=== PATIENT | female | born 1940 | race Caucasian/White ===

== ENCOUNTER → 2016-04-01 | Day surgery (SDC) | payer OTHER ==
[~2016-04-01] VITALS: Ht 167.6 cm; Wt 70.8 kg
[~2016-04-01] MED LIST: *morphine SULFATE 8 MG/ML PERIprocedure ONLY ONE; ACETAMINOPHEN 1000 MG/100 ML VIAL IV ONE; ACETAMINOPHEN/HYDROcodone 325 MG/5 MG TAB PO PRN; APREPITANT 40 MG CAP ONE; ASPI1TAB69 PO; BUPIVACAINE/EPINEPHRINE 0.25% PF 30 ML VIAL ONE; CALC1TAB87 PO; CHLORHEXIDINE GLUCONATE 4% SOLN 120 ML BTL TOP SCH; CHOL400D2 PO; COQ-100C2 PO; COQ-150C; DEXAMETHASONE SOD PHOS 4 MG/ML VIAL ONE; DO NOT ADM ANY ANTICOAGULANT DRUGS XX PRN; E-20CAP PO; FAMOTIDINE 20 MG/2 ML VIAL ONE; FISH500C PO; FLAX100013 PO; GENTAMICIN SULFATE 80 MG/2 ML VIAL ONE; GLUC1CAP16 PO; GLUC750C PO; INSULIN HUMAN REGULAR 1,000 UNITS/10 ML VIAL SQ PRN; LACTATED RINGER'S 1000 ML INJ 1,000 ML IV ONE; LACTATED RINGER'S 1000 ML IV SCH; LACTCAP8 PO; LOSA100T PO; MAGN1TAB14 PO; METOPROLOL TARTRATE 25 MG TAB PO PRN; MIDAZOLAM HCL 2 MG/2 ML VIAL ONE; NEOSTIGMINE 3 MG/3 ML SYR IV ONE; OMEG1CAP59 PO; PANT20TA2 PO; PHENYLEPH/NS 1000 MCG/10 ML SYR IV ONE; PRIMROSE OIL PO; PROMETHAZINE INJ 25 MG/ML VIAL ONE; PROPOFOL 200 MG/20 ML AMP IV ONE; SODIUM CHLORID 0.9% 500 ML IV SCH; VITA400C5 PO; VITA400T2 PO; ceFAZolin 1,000 MG/NS 100 ML IV SCH; ceFAZolin INJ 1,000 MG VIAL ONE; ePHEDrine/NS 50 MG/5 ML SYR IV ONE; fentaNYL CITRATE 250 MCG/5 ML AMP ONE
[2016-04-01 13:09] VITALS: BP 161/84; PULSE 79; RESP 18; TEMP 98.5; O2SAT 99
[2016-04-01 18:30] VITALS: BP 169/79; PULSE 60; RESP 16; TEMP 97.4; O2SAT 99
--- NOTE | 2016-04-01 21:20 | RADRPT ---
EXAM DATE/TIME: 04/01/2016 15:30 [facility] COMPARISON: No previous studies available for comparison. INDICATIONS : L4-5 Laminectomy. MEDICAL HISTORY : Unobtainable. SURGICAL HISTORY : Unobtainable. ENCOUNTER: Initial ACUITY: 1 day PAIN SCORE: Non-responsive. LOCATION: Lumbar Spine. FINDINGS: Hardware overlies the upper spinous processes of L5 directed toward the L4-5 intervertebral disc spac e where disc space narrowing and minimal spondylolisthesis is present. CONCLUSION: Localization L4-5 Gorge Frye MD on April 01, 2016 at 21:17 Board Certified Radiologist. This report was verified electronically.
--- NOTE | 2016-04-07 07:40 | MP ---
cc: KENYATTA WOMACK ALBERT DATE OF SURGERY: April 01, 2016 PREOPERATIVE DIAGNOSIS 1. L4-5 severe spinal stenosis. 2. L4-5 grade 1 spondylolisthesis. 3. Lumbar spine degenerative disc disease, osteoarthritis. 4. Left greater than right lumbar radiculitis with bilateral lower extremity weakness. POSTOPERATIVE DIAGNOSIS 1. L4-5 severe spinal stenosis. 2. L4-5 grade 1 spondylolisthesis. 3. Lumbar spine degenerative disc disease, osteoarthritis. 4. Left greater than right lumbar radiculitis with bilateral lower extremity weakness. PROCEDURE L4-5 bilateral hemilaminectomy, decompression nerve root foraminotomy with partial facetectomy. SURGEON Maykel Yeboah MD COLLEGE ADMISSIONS COUNSELOR JAY Barber SPECIMEN None. ESTIMATED BLOOD LOSS 20 ccs. COMPLICATIONS None. ANESTHESIA General. DRAIN None. CONDITION Stable. PLAN OF ACTIVITY Per orders. PROCEDURE My assistant women's basketball coach JAY Barber was present for the entire surgical case. She was medically necessary for the entire case because of the complexity of the case and to facilitate the performance of the procedure. The ELECTRICAL APPLIANCE REPAIRER at the back table was not a skill set for this case to manipulate the instruments, e.g., the multiple different types of soft tissue retractors and nerve root retractors. The patient was brought to the operating room and had satisfactory general endotracheal anesthesia by the Department of Anesthesia. The patient was carefully transferred onto the [facility] spinal frame. All pressure points were well-padded. Lumbosacral spine was prepped and draped in usual sterile manner. Localizing x-ray was used to identify the L4-5 interspace. 25 ccs of 0.25% Marcaine with epinephrine was used to infiltrate the operative site. Small midline incision made over L4-5. Dissection continued through skin and subcutaneous tissue. Paraspinal muscle was then gently removed from posterior elements at L4-5. Localizing x-ray was used multiple times during surgery to confirm the L4-5 interspace. A bilateral decompressive hemilaminectomy was performed at L4-5. The patient was found to have severe spinal stenosis and foraminal stenosis bilaterally. A bilateral decompressive hemilaminectomy was performed and bilateral foraminotomy and partial facetectomy was also performed. There was no evidence of any CSF leak. The patient had very satisfactory decompression of the neural elements. The wound was irrigated with copious amounts of sterile saline antibiotic solution, the wound itself was dry. Wound was closed in a routine manner. The fascia was closed with #2 Tycron suture. Subcutaneous tissue was closed in layers with multiple 2-0 Vicryl. Skin was approximated with running subcuticular 3-0 Nylon. Dermabond was placed over the skin. Sterile dressings were applied. The patient tolerated the procedure well and went to the recovery room in stable and satisfactory condition. MD RENALDO Valenzuela/IGNACIO /4:41 PM /7:16 AM
== END | disposition home or self-care (01) ==
LOC: HSDC 12:11
PROVIDERS: ATTEND Orthopaedic Surgery Orthopaedic Surgery of the Spine
DX: M51.36 Other intervertebral disc degeneration, lumbar region (principal); M48.06 Spinal stenosis, lumbar region; M43.16 Spondylolisthesis, lumbar region; M81.0 Age-related osteoporosis without current pathological fracture; M51.16 Intervertebral disc disorders with radiculopathy, lumbar region; R53.1 Weakness
CPT/HCPCS: 00630; 63030; 72020; 76000; 86850; 86900; 86901; J0131; J0690; J1100; J2250; J2270; J2370; J2550; J2710; J3010; J7120; J8501; J1580

== ENCOUNTER 2017-01-17 14:30 | Observation (INO) | payer OTHER ==
[~2017-01-17] VITALS: Ht 167.6 cm; Wt 69.2 kg
[~2017-01-17 14:30] MED LIST changes: -*morphine SULFATE 8 MG/ML PERIprocedure ONLY ONE; -ACETAMINOPHEN 1000 MG/100 ML VIAL IV ONE; -ACETAMINOPHEN/HYDROcodone 325 MG/5 MG TAB PO PRN; -APREPITANT 40 MG CAP ONE; -BUPIVACAINE/EPINEPHRINE 0.25% PF 30 ML VIAL ONE; -CHLORHEXIDINE GLUCONATE 4% SOLN 120 ML BTL TOP SCH; -CHOL400D2 PO; -COQ-150C; -DEXAMETHASONE SOD PHOS 4 MG/ML VIAL ONE; -DO NOT ADM ANY ANTICOAGULANT DRUGS XX PRN; -E-20CAP PO; -FAMOTIDINE 20 MG/2 ML VIAL ONE; -FISH500C PO; -GENTAMICIN SULFATE 80 MG/2 ML VIAL ONE; -GLUC750C PO; -INSULIN HUMAN REGULAR 1,000 UNITS/10 ML VIAL SQ PRN; -LACTATED RINGER'S 1000 ML INJ 1,000 ML IV ONE; -LACTATED RINGER'S 1000 ML IV SCH; -MAGN1TAB14 PO; +MAGN400T3 PO; -METOPROLOL TARTRATE 25 MG TAB PO PRN; -MIDAZOLAM HCL 2 MG/2 ML VIAL ONE; -NEOSTIGMINE 3 MG/3 ML SYR IV ONE; -PHENYLEPH/NS 1000 MCG/10 ML SYR IV ONE; -PROMETHAZINE INJ 25 MG/ML VIAL ONE; -PROPOFOL 200 MG/20 ML AMP IV ONE; -SODIUM CHLORID 0.9% 500 ML IV SCH; -ceFAZolin 1,000 MG/NS 100 ML IV SCH; -ceFAZolin INJ 1,000 MG VIAL ONE; -ePHEDrine/NS 50 MG/5 ML SYR IV ONE; -fentaNYL CITRATE 250 MCG/5 ML AMP ONE
[2017-01-17 14:34] VITALS: BP 183/81; PULSE 73; RESP 15; TEMP 97.8; O2SAT 98
--- NOTE | 2017-01-17 14:49 | PD ---
HPI Chief Complaint: Chest Pain Time Seen by Provider: 14:46 Travel History International Travel<30 days: No Contact w/Intl Traveler<30days: No Traveled to known affect area: No History of Present Illness HPI This 76-year-old female that she was having indigestion from Tuesday until Tuesday morning area the indigestion actually has improved considerably. She still feeling generalized weakness. After the indigestion resolved she had an episode of chest pain. She had pain across her mid chest which radiated up to her jaw. She says it lasted about 10 minutes. She has been diagnosed with a gallbladder problem about 5 years ago. She says it only functions the 20% though she has no stones. She sees past week. She had upper endoscopy 2 years ago which was okay and she had a colonoscopy a few months ago which was also normal. She does not have shortness of breath with the chest pain. She is not diaphoretic. She does not smoke. She has a history of hypertension and is on losartan 100 mg daily. She has no diabetes. There is no family history of heart disease. He said to losartan she takes Protonix daily and a baby aspirin. She has had her aspirin today PFSH Past Medical History Cancer: Yes (BASAL CELL SKIN CA X5) Cardiovascular Problems: No High Cholesterol: Yes Diabetes: No Diminished Hearing: No Deep Vein Thrombosis: Yes (bilat) Endocrine: No Genitourinary: No Hepatitis: No Hiatal Hernia: No Hypertension: Yes Immune Disorder: No Musculoskeletal: No (LUMBAR SCHOLIOSIS) Neurologic: Yes (SPINAL STENOSIS WITH HERNIATION) Psychiatric: No Reproductive: Yes (ENDOMETRIOSIS) Respiratory: No Thyroid Disease: No PNEUMOCCOCAL Vaccine (Year): 2009 Menopausal: Yes Dilation and Curettage (D&C): Yes (2) Past Surgical History Abdominal Surgery: Yes (lap for endomestriosis) AICD: No Cardiac Surgery: No Ear Surgery: No Endocrine Surgery: No Eye Surgery: No Genitourinary Surgery: No Gynecologic Surgery: Yes (D&C X2) Joint Replacement: No Oral Surgery: Yes (T&A) Pacemaker: No Thoracic Surgery: No Social History Alcohol Use: No Tobacco Use: No Substance Use: No Allergies-Medications (Allergen,Severity, Reaction): Coded Allergies: shellfish derived (Unverified Allergy, Severe, Anaphylaxis, 01/17/17) iodine (Unverified Allergy, Unknown, 01/17/17) potassium iodide (Unverified Allergy, Unknown, 01/17/17) povidone-iodine (Unverified Allergy, Unknown, 01/17/17) sodium iodide (Unverified Allergy, Unknown, 01/17/17) sodium iodide (Unverified Allergy, Unknown, 01/17/17) Reported Meds & Prescriptions Reported Meds & Active Scripts Active Reported Glucosamine Complex (Bwfhswbhm-Ngahbygvohj-Twbgzys) 1 Tab 1 Tab PO Coq10 (Coenzyme Q10 (Ubidecarenone)) 50 Mg Cap 100 Mg PO DAILY Hewitt 3 1200 mg ([place]-3 Fatty Acids) 684 Mg-1,200 Mg Cap Vitamin D-400 (Cholecalciferol) 400 Unit Tab 400 Units PO DAILY Aspirin 81 Mg Chew 81 Mg CHEW DAILY Glucosamine Chondroitin (Mnowtrnzbic-Uxkpmpzdclh-Wah C-) 1 Cap Cap 650 Mg PO DAILY E-400 (Vitamin E) 400 Unit Cap 1 Cap PO EVERY OTHER DAY [[place] Oil] 500 Mg PO DAILY Magnesium 400 Mg Tab 400 Mg PO BID Losartan (Losartan Potassium) 100 Mg Tab 100 Mg PO DAILY Pantoprazole (Pantoprazole Sodium) 20 Mg Tab 20 Mg PO DAILY Probiotic (Lactobacillus Acidophilus) 1 Cap Cap 1 Cap PO DAILY Flax Seed Oil (Flaxseed (Linseed)) 1,000 Mg Cap 1 Cap PO DAILY Calcium 600 with Vitamin D (Calcium Carbonate-Cholecalciferol) 600-400 mg-Unit Tab 1 Tab PO DAILY Review of Systems General / Constitutional: No: Fever, Chills Eyes: No: Diploplia, Blurred Vision HENT: No: Headaches, Vertigo Cardiovascular: Positive: Chest Pain or Discomfort, No: Palpitations, Irregular Rhythm Respiratory: No: Cough Gastrointestinal: Positive: Nausea, No: Vomiting, Diarrhea Genitourinary: No: Urgency, Frequency Skin: No Rash Neurologic: No: Weakness, Dizziness Endocrine: No: Heat Intolerance Hematologic/Lymphatic: No: Easy Bruising Physical Exam Narrative GENERAL: Well-developed female SKIN: Focused skin assessment warm/dry. HEAD: Atraumatic. Normocephalic. EYES: Pupils equal and round. No scleral icterus. No injection or drainage. ENT: No nasal bleeding or discharge. Mucous membranes pink and moist. NECK: Trachea midline. No JVD. CARDIOVASCULAR: Regular rate and rhythm. No murmur appreciated. RESPIRATORY: No accessory muscle use. Clear to auscultation. Breath sounds equal bilaterally. GASTROINTESTINAL: Abdomen soft, non-tender, nondistended. Hepatic and splenic margins not palpable. MUSCULOSKELETAL: No obvious deformities. No clubbing. No cyanosis. No edema. NEUROLOGICAL: Awake and alert. No obvious cranial nerve deficits. Motor grossly within normal limits. Normal speech. PSYCHIATRIC: Appropriate mood and affect; insight and judgment normal. Data Data Last Documented VS Vital Signs Date Time Temp Pulse Resp B/P (MAP) Pulse Ox O2 Delivery O2 Flow Rate FiO2 01/17/17 14:51 70 99 Room Air 01/17/17 14:34 97.8 15 183/81 (115) Orders Orders Complete Blood Count With Diff (01/17/17 14:46) Comprehensive Metabolic Panel (01/17/17 14:46) Troponin I (01/17/17 14:46) Lipase (01/17/17 14:46) Chest, Single Ap (01/17/17 14:46) Electrocardiogram (01/17/17 14:43) Labs Laboratory Tests Test 01/17/17 14:45 White Blood Count 4.3 TH/MM3 Red Blood Count 4.14 MIL/MM3 Hemoglobin 12.8 GM/DL Hematocrit 37.7 % Mean Corpuscular Volume 90.9 FL Mean Corpuscular Hemoglobin 30.9 PG Mean Corpuscular Hemoglobin Concent 34.0 % Red Cell Distribution Width 12.6 % Platelet Count 202 TH/MM3 Mean Platelet Volume 7.4 FL Neutrophils (%) (Auto) 62.3 % Lymphocytes (%) (Auto) 26.2 % Monocytes (%) (Auto) 9.0 % Eosinophils (%) (Auto) 1.7 % Basophils (%) (Auto) 0.8 % Neutrophils # (Auto) 2.7 TH/MM3 Lymphocytes # (Auto) 1.1 TH/MM3 Monocytes # (Auto) 0.4 TH/MM3 Eosinophils # (Auto) 0.1 TH/MM3 Basophils # (Auto) 0.0 TH/MM3 CBC Comment DIFF FINAL Differential Comment Blood Urea Nitrogen 15 MG/DL Creatinine 0.88 MG/DL Random Glucose 86 MG/DL Total Protein 7.9 GM/DL Albumin 3.7 GM/DL Calcium Level 9.1 MG/DL Alkaline Phosphatase 108 U/L Aspartate Amino Transf (AST/SGOT) 27 U/L Alanine Aminotransferase (ALT/SGPT) 32 U/L Total Bilirubin 0.8 MG/DL Sodium Level 139 MEQ/L Potassium Level 3.6 MEQ/L Chloride Level 102 MEQ/L Carbon Dioxide Level 27.8 MEQ/L Anion Gap 9 MEQ/L Estimat Glomerular Filtration Rate 62 ML/MIN Troponin I LESS THAN 0.02 NG/ML Lipase 308 U/L MDM Medical Decision Making Medical Screen Exam Complete: Yes Emergency Medical Condition: Yes Medical Record Reviewed: Yes Differential Diagnosis Differential includes gastritis, ulcer disease, coronary artery disease Narrative Course Chest x-rays read as negative. EKG shows normal sinus rhythm. Troponin is normal. Patient has been pain-free here. She has no cardiac history but she did have chest pain and she should be evaluated in the chest pain center Diagnosis Primary Impression: Chest pain Qualified Codes: R07.9 - Chest pain, unspecified Admitting Information Admitting Physician Requests: Observation Vinicio Bal MD Jan 17, 2017 14:49
[2017-01-17] MEDS ORDERED: BOSWTAB2 PO (14:58)
[2017-01-17] MEDS ORDERED: OMEG12002 (14:58)
[2017-01-17] MEDS ORDERED: COQ150CA PO (14:58)
[2017-01-17] MEDS ORDERED: VITATAB56 PO (14:58)
[2017-01-17] MEDS ORDERED: ASPI-516 CHEW (14:58)
[2017-01-17 15:07] LABS: AUTOMATED NEUTROPHIL # 2.7 TH/MM3 (1.8-7.7); BASOPHIL % 0.8 % (0.0-2.0); EOSINOPHIL # 0.1 TH/MM3 (0-0.4); EOSINOPHIL % 1.7 % (0.0-4.0); HEMATOCRIT 37.7 % (35.0-46.0); HEMO FLAGS DIFF FINAL; LYMPH % 26.2 % (9.0-44.0); LYMPHOCYTE # 1.1 TH/MM3 (1.0-4.8); MEAN CELL VOLUME 90.9 FL (80.0-100.0); MEAN CORPUSCULAR HEMOGLOBIN 30.9 PG (27.0-34.0); NEUT % 62.3 % (16.0-70.0); PLATELET COUNT 202 TH/MM3 (150-450); RED BLOOD COUNT 4.14 MIL/MM3 (4.00-5.30); RED CELL DISTRIBUTION WIDTH 12.6 % (11.6-17.2); WHITE BLOOD COUNT 4.3 TH/MM3 (4.0-11.0)
--- NOTE | 2017-01-17 15:21 | RADRPT ---
EXAM DATE/TIME: 01/17/2017 15:08 [facility] COMPARISON: No previous studies available for comparison. INDICATIONS : Cough. MEDICAL HISTORY : Hypertension. SURGICAL HISTORY : None. ENCOUNTER: Initial ACUITY: 3 days PAIN SCORE: 0/10 LOCATION: Bilateral chest FINDINGS: A single view of the chest demonstrates the lungs to be symmetrically aerated without evidence of mas s, infiltrate or effusion. The cardiomediastinal contours are unremarkable. Osseous structures are intact. CONCLUSION: No acute disease. Juan Arvizu MD FACR on January 17, 2017 at 15:19 Board Certified Radiologist. This report was verified electronically.
[2017-01-17 15:25] LABS: CHLORIDE 102 MEQ/L (98-107); POTASSIUM 3.6 MEQ/L (3.5-5.1); SODIUM (NA) 139 MEQ/L (136-145)
[2017-01-17 15:29] LABS: ANION GAP 9 MEQ/L (5-15); BICARBONATE 27.8 MEQ/L (21.0-32.0)
[2017-01-17 15:30] LABS: BLOOD UREA NITROGEN 15 MG/DL (7-18)
[2017-01-17 15:32] LABS: ALT (GPT) 32 U/L (10-53); AST (GOT) 27 U/L (15-37)
[2017-01-17 15:33] LABS: GLOMERULAR FILTRATION RATE 62 ML/MIN (>89)
[2017-01-17 15:34] LABS: TOTAL BILIRUBIN ADULT 0.8 MG/DL (0.2-1.0)
[2017-01-17 15:35] LABS: ALKALINE PHOSPHATASE 108 U/L (45-117)
[2017-01-17 15:49] VITALS: BP 183/80; PULSE 65; RESP 16; O2SAT 100
[2017-01-17 16:29] VITALS: BP 169/69; PULSE 65; RESP 16; O2SAT 99
[2017-01-17] MEDS ORDERED: ACETAMINOPHEN/HYDROcodone 325 MG/7.5 MG TAB PO PRN (18:45)
[2017-01-17] MEDS ORDERED: TEMAZEPAM 15 MG CAP PO PRN (18:45)
[2017-01-17] MEDS ORDERED: ACETAMINOPHEN 500 MG CPLT PO PRN (18:45)
[2017-01-17] MEDS ORDERED: NITROGLYCERIN 0.4 MG SL 25 TABS/BTL SL PRN (18:45)
[2017-01-17] MEDS ORDERED: SODIUM CHLORIDE 0.9% FLUSH 10 ML FLUSH IV FLUSH PRN (18:45)
[2017-01-17] MEDS ORDERED: ONDANSETRON HCL 4 MG/2 ML VIAL IV PUSH PRN (18:45)
--- NOTE | 2017-01-17 18:50 | HHI.HP ---
HPI [facility] Primary [facility] Physician Non-Staff Admission Diagnosis CHEST PAIN Diagnoses: (1) Chest pain Diagnosis: Principal Chief Complaint: General malaise, chest pain Travel History International Travel<30 Days: No Contact w/Intl Traveler <30 Da: No Traveled to Known Affected Are: No History of Present Illness 76-year-old female who has chronic abdominal discomfort. She states that over the last 5 years she has had gallbladder issues and it was indicated that it is nonsurgical. She states that she has discomfort intermittently over the last 5 years which varies in symptoms depending on what she eats. She had some pizza Tuesday night which caused her symptoms to aggravate. Patient states that she was having significant problems with decreased appetite, nausea , feeling hot and cold. She denied any pain. The patient took some Tums and then she woke up it Tuesday at 4 AM. She was awake during the rest of the day with just general not feeling well with no energy, fatigue, no appetite. She went to bed at 8 PM and then again woke up at 1 AM on Tuesday. She has some nausea, she had a bowel movement without any significant relief. The next day she just wasn't feeling well again and approximately 1300 she had a pain shoot shoot from the left side of her chest into the right side of her chest and up into her bilateral neck. She states that the pain was 8/10 on a pain scale. She denied any nausea, vomiting, diaphoresis, shortness of breath, lightheadedness, dizziness. She indicates that the pain lasted for approximately 5 minutes. The patient went to urgent care center and they indicated that her blood pressure was elevated 192/100. She is referred to the ER and she came here for evaluation. Patient states that she had the pain in her jaw until 4 PM, without any treatment in emergency department. Patient was evaluated and recommended observation chest pain center. Review of Systems Cardiovascular: COMPLAINS OF: Chest pain Except as stated in HPI: all other systems reviewed are Neg Past Family Social History Past Medical History Hypertension Hyperlipidemia untreated Chronic abdominal discomfort Lumbar spinal stenosis Past Surgical History Lumbar spine hemilaminectomy Laboratory Surgery for endometriosis Right knee arthroscopic surgery Tonsillectomy D&C 2 Reported Medications Reported Meds & Active Scripts Active Reported Glucosamine Complex (Gbrcbenyg-Yszanuosbts-Vqejzfo) 1 Tab 1 Tab PO Coq10 (Coenzyme Q10 (Ubidecarenone)) 50 Mg Cap 100 Mg PO DAILY [place]erson 3 1200 mg ([place]-3 Fatty Acids) 684 Mg-1,200 Mg Cap Vitamin D-400 (Cholecalciferol) 400 Unit Tab 400 Units PO DAILY Aspirin 81 Mg Chew 81 Mg CHEW DAILY Glucosamine Chondroitin (Pggbwthhbzc-Tlbiqiwkwkz-Bhy C-) 1 Cap Cap 650 Mg PO DAILY E-400 (Vitamin E) 400 Unit Cap 1 Cap PO EVERY OTHER DAY [[place] Oil] 500 Mg PO DAILY Magnesium 400 Mg Tab 400 Mg PO BID Losartan (Losartan Potassium) 100 Mg Tab 100 Mg PO DAILY Pantoprazole (Pantoprazole Sodium) 20 Mg Tab 20 Mg PO DAILY Probiotic (Lactobacillus Acidophilus) 1 Cap Cap 1 Cap PO DAILY Flax Seed Oil (Flaxseed (Linseed)) 1,000 Mg Cap 1 Cap PO DAILY Calcium 600 with Vitamin D (Calcium Carbonate-Cholecalciferol) 600-400 mg-Unit Tab 1 Tab PO DAILY Allergies: Coded Allergies: shellfish derived (Unverified Allergy, Severe, Anaphylaxis, 01/17/17) iodine (Unverified Allergy, Unknown, 01/17/17) potassium iodide (Unverified Allergy, Unknown, 01/17/17) povidone-iodine (Unverified Allergy, Unknown, 01/17/17) sodium iodide (Unverified Allergy, Unknown, 01/17/17) sodium iodide (Unverified Allergy, Unknown, 01/17/17) Family History Reviewed and mother at age 71 with colon cancer, father at age 81 with an unknown blood disorder Social History Patient smoked when she was 20 years old only for 1 year. She denies any alcohol or illicit drugs Physical Exam Vital Signs Vital Signs Date Time Temp Pulse Resp B/P (MAP) Pulse Ox O2 Delivery O2 Flow Rate FiO2 01/17/17 16:59 01/17/17 16:29 65 16 169/69 (102) 99 Room Air 01/17/17 15:49 65 16 183/80 (114) 100 Room Air 01/17/17 14:51 70 99 Room Air 01/17/17 14:34 97.8 73 15 183/81 (115) 98 Physical Exam GENERAL: Well-developed, well-nourished, in no acute distress. alert and orientated HEENT: Head is normocephalic without any lesions or masses noted. Facial features are symmetric. Eyes: Pupils equal round reactive to light. Extraocular muscles are intact. Conjunctivae were clear. Oropharyngeal: Pharynx without any erythema edema. Tongue is midline without deviation. Buccal mucosa is moist without any masses or lesions NECK: Supple without any masses. Trachea midline no deviation. No JVD, no bruits are appreciated CARDIAC: Regular rhythm, regular rate. S1/S2 are heard. No murmurs gallops or rubs. LUNGS: Clear to auscultation bilaterally. No wheeze, rhonchi or rales. No use of accessory muscles on inspiration or expiration. ABDOMEN: Soft, nontender. Nondistended. Bowel sounds heard in all 4 quadrants. No organomegaly or masses. Negative rebound, negative guarding EXTREMITIES: No edema, pulses are equal bilaterally. No cyanosis or clubbing NEUROLOGY: Mood and affect appear appropriate. Cranial nerves II through XII grossly intact. Muscle strength 5/5 in upper and lower extremities bilaterally. Deep tendon reflexes are 2+ in upper and lower extremities bilaterally. Laboratory Laboratory Tests Test 01/17/17 14:45 White Blood Count 4.3 Red Blood Count 4.14 Hemoglobin 12.8 Hematocrit 37.7 Mean Corpuscular Volume 90.9 Mean Corpuscular Hemoglobin 30.9 Mean Corpuscular Hemoglobin Concent 34.0 Red Cell Distribution Width 12.6 Platelet Count 202 Mean Platelet Volume 7.4 Neutrophils (%) (Auto) 62.3 Lymphocytes (%) (Auto) 26.2 Monocytes (%) (Auto) 9.0 Eosinophils (%) (Auto) 1.7 Basophils (%) (Auto) 0.8 Neutrophils # (Auto) 2.7 Lymphocytes # (Auto) 1.1 Monocytes # (Auto) 0.4 Eosinophils # (Auto) 0.1 Basophils # (Auto) 0.0 CBC Comment DIFF FINAL Differential Comment Blood Urea Nitrogen 15 Creatinine 0.88 Random Glucose 86 Total Protein 7.9 Albumin 3.7 Calcium Level 9.1 Alkaline Phosphatase 108 Aspartate Amino Transf (AST/SGOT) 27 Alanine Aminotransferase (ALT/SGPT) 32 Total Bilirubin 0.8 Sodium Level 139 Potassium Level 3.6 Chloride Level 102 Carbon Dioxide Level 27.8 Anion Gap 9 Estimat Glomerular Filtration Rate 62 Troponin I LESS THAN 0.02 Lipase 308 Result Diagram: 01/17/175 01/17/171444 Imaging Last Impressions Chest X-Ray 01/17/171445 Signed Impressions: Service Date/Time: Tuesday, January 17, 2017 15:08 - CONCLUSION: No acute disease. Juan Arvizu MD FACR Caprini VTE Risk Assessment Caprini VTE Risk Assessment: Mod/High Risk (score >= 2) Caprini Risk Assessment Model Point Value = 1 Point Value = 2 Point Value = 3 Point Value = 5 Age 41-60 Minor surgery BMI > 25 kg/m2 Swollen legs Varicose veins or History of unexplained or recurrent spontaneous Oral contraceptives or hormone replacement Sepsis (< 1 month) Serious lung disease, including pneumonia (< 1 month) Abnormal pulmonary function Acute myocardial infarction Congestive heart failure (< 1 month) History of inflammatory bowel disease Medical patient at bed rest Age 61-74 Arthroscopic surgery Major open surgery (> 45 min) Laparoscopic surgery (> 45 min) Malignancy Confined to bed (> 72 hours) Immobilizing plaster cast Central venous access Age >= 75 History of VTE Family history of VTE Factor V Leiden Prothrombin [id number] Lupus anticoagulant Anticardiolipin antibodies Elevated serum homocysteine Heparin-induced thrombocytopenia Other congenital or acquired thrombophilia Stroke (< 1 month) Elective arthroplasty Hip, pelvis, or leg fracture Acute spinal cord injury (< 1 month) Prophylaxis Regimen Total Risk Factor Score Risk Level Prophylaxis Regimen 0-1 Low Early ambulation 2 Moderate Order ONE of the following: *Sequential Compression Device (SCD) *Heparin 5000 units SQ BID 3-4 Higher Order ONE of the following medications: *Heparin 5000 units SQ TID *Enoxaparin/Lovenox 40 mg SQ daily (WT < 150 kg, CrCl > 30 mL/min) *Enoxaparin/Lovenox 30 mg SQ daily (WT < 150 kg, CrCl > 10-29 mL/min) *Enoxaparin/Lovenox 30 mg SQ BID (WT < 150 kg, CrCl > 30 mL/min) AND/OR *Sequential Compression Device (SCD) 5 or more Highest Order ONE of the following medications: *Heparin 5000 units SQ TID (Preferred with Epidurals) *Enoxaparin/Lovenox 40 mg SQ daily (WT < 150 kg, CrCl > 30 mL/min) *Enoxaparin/Lovenox 30 mg SQ daily (WT < 150 kg, CrCl > 10-29 mL/min) *Enoxaparin/Lovenox 30 mg SQ BID (WT < 150 kg, CrCl > 30 mL/min) AND *Sequential Compression Device (SCD) Assessment and Plan Assessment and Plan Chest pain, atypical Patient with increased risk factors include age, hypertension, hyperlipidemia , We'll continue to rule patient out for acute coronary event with serial cardiac enzymes, serial EKGs If patient ruled out for any acute event will pursue chemical stress test rule out any underlying ischemia Continue aspirin, nitroglycerin as needed, [place], morphine for pain control Continue O2 supplementation Accelerated hypertension Continue home medications Vasotec, clonidine as needed Hyperlipidemia, untreated Check lipid panel DVT prevention Sequential compression devices Problem Qualifiers (1) Chest pain: Qualified Codes: R07.9 - Chest pain, unspecified Demetrius Haywood Jan 17, 2017 18:50
[2017-01-17] MEDS ORDERED: cloNIDine HCL 0.1 MG TAB PO PRN (19:00)
[2017-01-17 19:45] LABS: CREATINE KINASE 81 U/L (26-192)
[2017-01-17] MEDS ORDERED: MORPHINE SULFATE 2 MG/ML INJ IV PUSH PRN (19:45)
[2017-01-17] MEDS: SODIUM CHLORIDE 0.9% FLUSH 10 ML FLUSH IV FLUSH SCH (19:50)
[2017-01-17 20:00] VITALS: BP 145/64; PULSE 69; PULSE 74; RESP 18; TEMP 98; O2SAT 97; O2SAT 98
[2017-01-17] MEDS ORDERED: FAMOTIDINE 20 MG TAB PO SCH (21:00)
[2017-01-17 22:16] LABS: CREATINE KINASE 116 U/L (26-192)
[2017-01-17 22:28] LABS: CKMB 1.4 NG/ML (0.5-3.6)
[2017-01-18] VITALS: BP 193/77; PULSE 66; RESP 18; TEMP 96.9; O2SAT 97
[2017-01-18] MEDS: ENALAPRILAT 1.25 MG/ML VIAL IV PUSH PRN ×2 (02:52→08:29)
[2017-01-18 04:00] VITALS: BP 177/78; PULSE 62; RESP 18; TEMP 96.6; O2SAT 99
[2017-01-18 08:00] VITALS: BP 162/72; PULSE 62; PULSE 67; RESP 16; TEMP 97.8; O2SAT 99
--- NOTE | 2017-01-18 08:26 | HHI.PR ---
Subjective Remarks Follow up chest pain. Patient seen and examined this morning. She is awake and alert. Denies any chest pain overnight. Denies any acute complaints overnight. Denies any fever, chills, cough, shortness of breath, ab pain, n/v/d or dysuria. Agreeable to chemical stress test today. States she has a bad knee and does not think she can walk on a treadmill. Objective Vitals Vital Signs Date Time Temp Pulse Resp B/P (MAP) Pulse Ox O2 Delivery O2 Flow Rate FiO2 01/18/17 04:00 62 01/18/17 04:00 96.6 62 18 177/78 (111) 99 01/18/17 00:00 96.9 66 18 193/77 (115) 97 01/17/17 20:50 18 01/17/17 20:00 69 01/17/17 20:00 98.0 74 18 145/64 (91) 97 01/17/17 20:00 98 21 01/17/17 16:59 01/17/17 16:29 65 16 169/69 (102) 99 Room Air 01/17/17 15:49 65 16 183/80 (114) 100 Room Air 01/17/17 14:51 70 99 Room Air 01/17/17 14:34 97.8 73 15 183/81 (115) 98 I/O 01/17/17 01/17/17 01/17/17 01/18/17 01/18/17 01/18/17 07:00 15:00 23:00 07:00 15:00 23:00 Intake Total 400 ml Balance 400 ml Intake Oral 400 ml # Voids 1 2 # Bowel Movements 0 0 Result Diagram: 01/17/17 1445 01/17/17 1445 Imaging Last Impressions Chest X-Ray 01/17/17 1446 Signed Impressions: Service Date/Time: Tuesday, January 17, 2017 15:08 - CONCLUSION: No acute disease. Juan Arvizu MD FACR Objective Remarks GENERAL: Well-developed, well-nourished, in no acute distress. alert and orientated HEENT: Head is normocephalic without any lesions or masses noted. Facial features are symmetric. Eyes: Pupils equal round reactive to light. Extraocular muscles are intact. Conjunctivae were clear. Oropharyngeal: Pharynx without any erythema edema. Tongue is midline without deviation. Buccal mucosa is moist without any masses or lesions NECK: Supple without any masses. Trachea midline no deviation. No JVD, no bruits are appreciated CARDIAC: Regular rhythm, regular rate. S1/S2 are heard. No murmurs gallops or rubs. LUNGS: Clear to auscultation bilaterally. No wheeze, rhonchi or rales. No use of accessory muscles on inspiration or expiration. ABDOMEN: Soft, nontender. Nondistended. Bowel sounds heard in all 4 quadrants. No organomegaly or masses. Negative rebound, negative guarding EXTREMITIES: No edema, pulses are equal bilaterally. No cyanosis or clubbing NEUROLOGY: Mood and affect appear appropriate. Cranial nerves II through XII grossly intact. Muscle strength 5/5 in upper and lower extremities bilaterally. Deep tendon reflexes are 2+ in upper and lower extremities bilaterally. A/P Problem List: (1) Chest pain ICD Code: R07.9 - Chest pain, unspecified Status: Acute Assessment and Plan Chest pain, atypical Patient with increased risk factors include age, hypertension, hyperlipidemia , Serial troponin are flat. Serial EKGs reviewed showing NSR, HR controlled, no arrhythmias or ST changes to indicate ischemia. Will plan for lexiscan today to rule out any underlying ischemia. Further treatment plan will depend on nuclear images and results. Continue aspirin, nitroglycerin as needed, [place], morphine IV for pain control. Continue O2 supplementation as needed. Accelerated hypertension BP still elevated, systolic 170's. Continued home medications. Vasotec, clonidine as needed. Continue to monitor trends. Hyperlipidemia, untreated Lipid panel pending. Follow. DVT prevention: Sequential compression devices Patient stable at this time and agreeable to the plan. Problem Qualifiers (1) Chest pain: Qualified Codes: R07.9 - Chest pain, unspecified Angelica Willson Jan 18, 2017 08:26
[2017-01-18] MEDS: SODIUM CHLORIDE 0.9% FLUSH 10 ML FLUSH IV FLUSH SCH (08:28)
[2017-01-18] MEDS ORDERED: ASPIRIN 325 MG TAB PO SCH (09:00)
[2017-01-18] MEDS ORDERED: LOSARTAN 50 MG TAB PO SCH (09:00)
[2017-01-18] MEDS ORDERED: PANTOPRAZOLE SOD 20 MG DELAYED RELEASE TAB PO SCH (09:00)
[2017-01-18 09:43] LABS: HDL CHOLESTEROL 57.7 MG/DL (40.0-60.0)
--- NOTE | 2017-01-18 11:48 | RADRPT ---
EXAM DATE/TIME: 01/18/2017 10:11 [facility] COMPARISON: CHEST SINGLE AP, January 17, 2017, 15:08. INDICATIONS : Bilateral chest pain radiating to the jaw. Angina. DOSE: 26.5 mCi Tc99m Myoview at stress. 8.7 mCi Tc99m Myoview at rest. 0.4 mg Lexiscan STRESS SYMPTOMS: Head pressure and headache. EJECTION FRACTION: > 70% MEDICAL HISTORY : Hypercholesterolemia. Gastroesophageal reflux disease. Deep venous thrombosis. Hypertension. Skin can cer. SURGICAL HISTORY : Tonsillectomy. ENCOUNTER: Initial ACUITY: 1 day PAIN SCALE: 5/10 LOCATION: Bilateral chest TECHNIQUE: The patient underwent pharmacologic stress with infusion of prescribed dose. Continuous ECG tracing was monitored during stress. Gated SPECT imaging was performed after stress and conventional SPECT i maging was performed at rest. The examination was performed on a SPECT/CT scanner, both attenuation and non-corrected datasets were reviewed. FINDINGS: DISTRIBUTION: The maximum perfused segment at stress is in the anterolateral wall. PERFUSION STUDY: The pattern of perfusion at stress is within normal limits. GATED STUDY: There is intact wall motion and thickening without hypokinetic or dyskinetic segments. CONCLUSION: 1. Left ventricle perfusion is within normal limits. 2. Normal left ventricle wall motion and ejection fraction. RISK CATEGORY: Low (<1% Annual Mortality Rate) Gorge Bazzi MD on January 18, 2017 at 11:44 Board Certified Radiologist. This report was verified electronically.
[2017-01-18 12:00] VITALS: BP 144/66; PULSE 77; RESP 16; TEMP 97.8; O2SAT 100
[2017-01-18] MEDS ORDERED: NITR0.4S SL (12:02)
[2017-01-18] MEDS ORDERED: ATOR40TA16 PO (12:02)
--- NOTE | 2017-01-18 12:03 | HHI.DCPOC ---
Discharge Care Plan Diagnosis: (1) Chest pain Your Health Problems Are: Anxiety Chest Pain Goals to Promote Your Health * To prevent worsening of your condition and complications * To maintain your health at the optimal level Directions to Meet Your Goals Take your medications as prescribed Follow your dietary instruction Follow activity as directed Keep your appointments as scheduled Take your immunizations and boosters as scheduled If your symptoms worsen call your PCP, if no PCP go to Urgent Care Center or Emergency Room Smoking is Dangerous to Your Health. Avoid second hand smoke Call the 24-hour hour crisis hotline for domestic abuse at Angelica Willson Jan 18, 2017 12:03
[2017-01-18] MEDS ORDERED: CLON.1 PO (12:13)
--- NOTE | 2017-01-18 14:13 | EKG ---
Date Performed: 01/17/2017 Time Performed: 21:47:49 PTAGE: 76 years EKG: Sinus rhythm NORMAL ECG PREVIOUS TRACING : 01/17/2017 18.49 Compared to prior tracing no significant change DOCTOR: Pollo Atkinson Interpretating Date/Time 01/18/2017 14:09:00
--- NOTE | 2017-01-18 14:18 | EKG ---
Date Performed: 01/17/2017 Time Performed: 18:49:44 PTAGE: 76 years EKG: Sinus rhythm NORMAL ECG PREVIOUS TRACING : 01/17/2017 14.43 Compared to prior tracing no significant change DOCTOR: Pollo Atkinson Interpretating Date/Time 01/18/2017 14:12:58
--- NOTE | 2017-01-18 14:26 | EKG ---
Date Performed: 01/17/2017 Time Performed: 14:43:23 PTAGE: 76 years EKG: Sinus rhythm NORMAL ECG PREVIOUS TRACING : 02/25/2011 18.53 Compared to prior tracing no significant change DOCTOR: Pollo Atkinson Interpretating Date/Time 01/18/2017 14:19:46
[2017-01-18] MEDS ORDERED: REGADENOSON INJ 0.4 MG/5 ML SYR IV ONE (16:08)
--- NOTE | 2017-01-18 17:19 | TR ---
Date Performed: 01/18/2017 Time Performed: 10:40:34 DOCTOR: Sonal Olmos DRUG LIST: CLINICAL HISTORY: REASON FOR TEST: Chest pain REASON FOR ENDING: OBSERVATION: CONCLUSION: Lexiscan stress test was performed under standard four minute protocol. [place]ion[place] e was injected one minute prior to ending the test. No electrocardiographic abormalities were present to suggest ischemia. Nuclear imaging and interpretation are pending. COMMENTS:
[2017-01-18] MEDS ORDERED: ATORVASTATIN 40 MG TAB PO SCH (21:00)
== END 2017-01-18 12:51 | disposition home or self-care (01) ==
LOC: PHED 14:30 → PHEDA 16:07 → PH3A 17:00
PROVIDERS: ADMIT Family Medicine; ATTEND Family Medicine
DX: R07.89 Other chest pain (principal); R12 Heartburn; R53.1 Weakness; I10 Essential (primary) hypertension; N80.9 Endometriosis, unspecified; R11.0 Nausea; R53.81 Other malaise; M48.061 Spinal stenosis, lumbar region without neurogenic claudication; Z79.899 Other long term (current) drug therapy
CPT/HCPCS: 71010; 78452; 80053; 80061; 82550; 82552; 83690; 84484; 85025; 93005; 93017; 96374; 96376; 99285; A9502; G0378; J2785